=== PATIENT | male | born 1980 | race Caucasian/White ===

== ENCOUNTER 2018-07-15 11:58 | Emergency (ER) | payer BC, SELFPAY ==
[2018-07-15 11:59] VITALS: BP 126/68; PULSE 98; RESP 16; TEMP 36.9; O2SAT 96; BMI 32.1
[2018-07-15] MEDS: 0.9% Normal Saline 1,000 ML 1000 ML IV (12:14)
--- NOTE | 2018-07-15 12:14 | EKG12_ITS ---
Test Reason : CP Blood Pressure : / mmHG Vent. Rate : 093 BPM Atrial Rate : 093 BPM P-R Int : 182 ms QRS Dur : 098 ms QT Int : 332 ms P-R-T Axes : 021 038 034 degrees QTc Int : 412 ms Normal sinus rhythm with sinus arrhythmia RSR' or QR pattern in V1 suggests right ventricular conduction delay Borderline ECG Confirmed by STEVE LABOY, DEBORA ([id number]), supervising editor news reel MAN [email or web address] [id number]) on 07/18/2018 10:53:18 AM Referred By: KIP Confirmed By:DEBORA WILSON MD
--- NOTE | 2018-07-15 12:14 | RAD_ITS ---
STUDY: X-RAY CHEST REASON FOR EXAM: Male, 38 years old. Sudden onset chest pain. TECHNIQUE: Single AP portable view of the chest. COMPARISON: None. FINDINGS: Low lung volumes. Cardiac silhouette unremarkable. Pulmonary vascularity unremarkable. Aorta unremarkable. No focal patchy airspace opacities. No pleural effusions. Minimal atelectasis. Upper abdomen unremarkable. Osseous structures intact. No pneumothorax. RAD/Chest 1 View (Portable) IMPRESSION: No acute cardiopulmonary findings Low lung volumes with minimal atelectasis Electronically Signed: Karri Carcmao DO at 12:51 EDT Tel , Service support ,
[2018-07-15 12:38] VITALS: O2SAT 96
[2018-07-15 12:45] LABS: Absolute Lymphocyte Count 1.09 X10^3/ul (0.83-4.51); Absolute Neutrophil Count 11.5 X10^3/uL (2.0-7.7); Basophil# 0.02 X10^3/uL; Basophil% 0.1 % (0-1); Eosinophil# 0.01 X10^3/uL; Eosinophils% 0.1 % (0-5); Hematocrit 43.4 % (40-54); Hemoglobin 15.2 g/dl (13.0-16.5); Lymphocyte # 1.09 X10^3/ul (4.0); Lymphocyte % 8.1 % (19-41); Mean Corpuscular Hgb 29.5 pg (27.0-32.0); Mean Corpuscular Volume 84.1 fL (80-94); Monocyte# 0.88 X10^3/uL; Monocyte% 6.5 % (0-10); Neutrophil # 11.49 X10^3/uL (2.7-7.7); Neutrophil % 84.8 % (47-70); Platelet Count 311 K/mm3 (150-450); RBC Distribution Width CV 13.8 % (11.6-14.6); RBC Distribution Width SD 42.1 fl (35.1-43.9); Red Blood Count 5.16 M/mm3 (4.6-6.2); White Blood Count 13.5 K/mm3 (4.4-11.0)
[2018-07-15 12:49] LABS: POSITIVE COUNT NO; POSITIVE DIFFERENTIAL NO; POSITIVE MORPHOLOGY NO
[2018-07-15 13:01] LABS: Anion Gap 7 (5-15); BUN 9 mg/dL (7-18); BUN/Creat Ratio 9.1 RATIO (10-20); Calcium,Total 8.9 mg/dL (8.5-10.1); Chloride 108 mmol/L (98-107); Creatinine, Serum 0.99 mg/dL (0.70-1.30); D-Dimer Quantitative (DVT/PE) < 0.27 FEU/ug/m (0.27-0.49); EST Glomerular Filtration Rate 90 mL/min (>60); Est Glom Filt Rate - Afr Amer 109 mL/min (>60); Estimated Creatinine Clearance 117.63 ml/min; Glucose 127 mg/dL (74-106); Potassium 3.8 mmol/L (3.5-5.1); Sodium Level 139 mmol/L (136-145)
--- NOTE | 2018-07-15 13:21 | ED.DCSUM_ITS ---
- ER Visit Summary Date of Service: 07/15/18 Chief Complaint: Chest pain History of Present Illness: The patient is a 38 M who sees . Ports that he has chest pain began at 4:00 this morning. Is been a constant pain since that time. Describes it as aching. 8 out of 10 at worst and 4 out of 10 cur rently. Is worsened by breathing and relieved by nothing. No nausea, vomiting, or diaphoresis. Does report is been mildly short of breath. Patient has no personal family history of DVT. He did drive to [place] 2 weeks ago. He denies any ankle swelling or calf pain. Physical Examination: Vitals: Stable. Afebrile. General: Well-nourished and well-developed. Head: Normocephalic atraumatic. Neck: Supple, no lymphadenopathy. No JVD. Nontender. Cardiovascular: Regular rate and rhythm. No murmurs. Respiratory: No respiratory distress. Clear to auscultation bilaterally. Abdominal: Soft, nontender, nondistended, normal bowel sounds. No guarding, rebound, or peritoneal signs. Back: Nontender. Extremities: Nontender, no edema. Skin: Normal color, no rash. Neurologic: Alert and oriented ?3. Cranial nerves II through XII are intact. Normal strength and sensation. Psych: Normal affect. Test Results: EKG is sinus at [address] changes. Troponin is negative. D-dimer is negative. Chem-7 is more for chloride 108 and glucose 127. CBC is more for a white count of 13.5. Chest x-ray shows poor inspiration no acute disease. Emergency Department Course and Treatment: Patient was given aspirin by EMS. He refused pain or nausea medication while here. He also refused a GI cocktail. He reports that he feels much improved just from the IV fluids. Treatment Plan: Patient be discharged instructions to push fluids. Follow-up his primary care physician in 1-2 days if not improving. Return to the emergency department for any worsening symptoms. Disposition: To home in improved and stable condition. Impression: 1. Atypical chest pain. This note was generated with Caset[employer] dictation software. It may contain incorrect words, spelling, and punctuation that were not noted in review of the chart prior to signing ED Disposition - Plan for ED Patient: Disposition: Home or Assisted Living Instructions: ED Chest Pain Atypical Unkn Cause Referrals: Gerald Doyle MD [Primary Care Provider] - As soon as possible
[2018-07-15 14:00] VITALS: BP 128/81; PULSE 100; RESP 20; O2SAT 100
== END 2018-07-15 14:06 | disposition home or self-care (01) ==
LOC: ED 12:36
PROVIDERS: Emergency Provider Emergency Medicine; Family Provider Family Medicine; PCP Family Medicine
DX: R07.89 Other chest pain (principal); R06.02 Shortness of breath; Z79.899 Other long term (current) drug therapy
CPT/HCPCS: 71045; 80048; 84484; 85025; 85379; 93005; 99285; A4216